=== PATIENT | female | born 1985 | race Caucasian/White ===

== ENCOUNTER 2023-09-11 10:09 | Emergency (ER) | payer OTHER, SELFPAY ==
[2023-09-11 10:11] VITALS: BP 115/69; PULSE 68; RESP 20; TEMP 36.5; O2SAT 98
--- NOTE | 2023-09-11 10:21 | ED.GENADUL_ITS ---
Discharge Plan Disposition Patient Disposition: Home Condition: Stable Discharge Details Clinical Impression: Closed fracture of distal end of left radius with ulna Primary Care Provider: Unknown,Unknown ED Provider: Lenora Morrison Home Meds and New Rx's Prescriptions: No Action No Known Home Meds Discharge Instructions Instructions: Wrist Fracture in Adults (ED) Additional Instructions: Your wrist was successfully reduced. Please keep the splint on and do not get it wet until follow-up with orthopedics. Please follow-up with them sometime this week. They will call you for follow-up appointment. If you have not heard from them in the next few days please call them. Keep your arm elevated above the level of your heart and ice it. You may loosen the Howard wrap's a little bit if it appears to be too tight your fingers turn cold blue numb or tingly. If you have severe increasing pain or problems with blood circulation please return to the ER. Please take Tylenol or Ibuprofen with food every 4-6 hours as needed for pain and swelling. Stand Alone Forms: Work Release Referrals: Arnel Johns MD [ [facility] STAFF PHYSICIAN] - 1 week Discharge Data Discharge Date/Time-TO BE ENTERED AT DEPARTURE: 09/11/23 12:56 HPI General Mode of arrival: ambulatory . Date/Time Provider Initiated Documentation: 09/11/23 10:19 . Limitations to Documentation: no limitations . Information obtained by: patient, family, RN notes reviewed and old records reviewed . HPI Narrative: 38 year old female presents to the ED with cc of left wrist deformity after a Foosh type injury while skiing. obvious deformity with dorsal angulation noted to wrist, Radial and ulnar pulses intact, distal CMS intact. Sensation intact to all fingers,hand is pink warm, dry. No other injuries, denies JORGE, neck or back pain. Related Data Home Medications Medication Instructions Recorded Confirmed Unknown [No Known Home Meds] 09/11/23 09/11/23 Allergies Allergy/AdvReac Type Severity Reaction Status Date / Time Penicillins Allergy Severe Anaphylaxis Unverified 09/11/23 10:16 General Stated Complaint: Orthopedic VIDYA: 3 Review of Systems All systems reviewed & are unremarkable except as noted in HPI and below ENT Ears, Nose, Mouth, and Throat: Denies neck pain Musculoskeletal Musculoskeletal: Reports as per HPI, Denies back pain, Reports deformity, Reports arthralgias, Reports joint swelling and Denies neck pain Exam Narrative Exam Narrative: General: Well Developed, Awake and Alert, conversant. Skin: Warm and Dry HEENT: Head: No palpable deformities, Normocephalic Eyes: Pupils PERRLA, EOM's intact. No periorbital eccymosis or step off Ears: Canal patent. Tympanic membranes are clear . No herman's sign, no hemptympanum. Nose/Face: Atraumatic. Facial bones nontender to palpation and stable with manipulation. Mouth/Throat: No intraoral trauma. Teeth and mandible are intact. Neck: No midline tenderness, no step off, no deformity to palpation of C-spine. Trachea midline. Chest: No surface trauma. Nontender without crepitus or deformity. Lungs clear to ausculatation bilaterally. Heart: RRR, no rubs, murmurs or gallop. Abdomen: No abrasions, ecchymosis, or surface trauma. Nondistended. Nontender to palpation no guarding, rebound, or rigidity. Pelvis: Nontender to palpation and stable to compression. Femoral pulses strong and equal Extremities: no surface trauma. Sensation intact. Peripheral pulses intact and equal. Deformity noted to left wrist. Dorsally angulated, distal pulses intact, sensation intact, no open skin. Suspect closed fracture. Neuro: ANO x4, GCS 15, cranial nerves II through XII intact. Motor and sensory exam nonfocal. Reflexes are symmetric. Extrem Right upper extremity: normal to inspection Left upper extremity: wrist Details: abnormal to inspection Details: obvious deformity, tenderness, swelling, radial pulse present and ulnar pulse present Course Vital Signs Vital signs: Vital Signs Temperature 36.5 C 09/11/23 10:11 Pulse 68 09/11/23 10:11 Respiratory Rate 20 09/11/23 10:11 Blood Pressure 115/69 09/11/23 10:11 Pulse Oximetry 98 09/11/23 10:11 Temperature 36.5 C 09/11/23 10:11 Temperature Source Tympanic 09/11/23 10:11 Pulse 68 09/11/23 10:11 Respiratory Rate 20 09/11/23 10:11 Blood Pressure 115/69 09/11/23 10:11 Blood Pressure Position Sitting 09/11/23 10:11 Pulse Oximetry 98 09/11/23 10:11 Oxygen Delivery Method Room Air 09/11/23 10:11 Oxygen Flow Rate 0 04/02/24 10:11 Pain Level 8 09/11/23 10:11 Procedures Nerve Block Nerve Block 1: Local Anesthetic: Lidocaine 2% Amount of anesthesia used (mL): 8 Side: left Nerve Blocks: hematoma block (Left wrist Fracture, dorsal side) Procedure Successful: Yes Patient Tolerated Procedure: well Complications: none Orthopedic Fracture Reduction Fracture #1: Time Out Performed: Yes Side: left Fracture Reduction Location: radius Analgesia: procedural sedation (1 mg Dilaudid) and hematoma block Technique: direct manipulation and traction/counter-traction Post Reduction X-rays Demonstrate: anatomical reduction Post-reduction neuro exam: intact Post-reduction vascular exam: intact Splint Applied: Yes Patient Tolerated Procedure: well Orthopedic Splinting/Casting Injury #1: Side: left Upper Extremity Injury Location: wrist Upper Extremity Immobilizer: sugartong splint and Howard wrap Other Orthopedic Equipment: other (Sling) Medical Decision Making 38 year old female presents to the ED with cc of left wrist deformity after a Foosh type injury while skiing. obvious deformity with dorsal angulation noted to wrist, Radial and ulnar pulses intact, distal CMS intact. Sensation intact to all fingers,hand is pink warm, dry. No other injuries, denies JORGE, neck or back pain. XR and percocet ordered, staff attorney placed patient in a sling. Ortho production hardener paged. Discussed X-ray findings, and verbally consented for hematoma block and reduction, verbalized understanding and agreed to plan. 1132: Spoke with regarding fracture, he was able to personally view the images. Will attempt closed reduction and plan for post reduction x-ray. Successful reduction noted on the x-rays. Distal CMS intact. Patient is sleepy. Will discharge patient with follow-up with orthopedics and into the care of her family. Will instruct on RICE procedures and follow-up care. Sugar-tong plaster splint applied Howard wrap. This text was generated using [employer] system, please disregard any oddities of phrase or misspellings. Quality:SDOH Health Related Social Needs: Health related social needs transpo insecurity PFSH All Active Problems (Updated 09/11/23 @ 12:38 by Lenora Morrison, [place]) Closed fracture of distal end of left radius with ulna (Acute) Social History Smoking/Tobacco Use Status: Never Smoking risk assessment performed?: Yes Alcohol Intake: never Substance use type: does not use Housing: house Do you feel safe at home: Yes Do you feel safe in your relationship?: Yes
[2023-09-11] MEDS: Ondansetron O.D.T. 4 MG TABEF PO (10:27)
[2023-09-11] MEDS: oxyCODONE 5 mg/Acetaminophen 325 mg TAB 1 TAB PO (10:27)
--- NOTE | 2023-09-11 10:52 | DI.RAD_ITS ---
Exam(s) XR WRIST LT COMPLETE EXAM: XR WRIST LT COMPLETE CLINICAL HISTORY: Fall, deformity. TECHNIQUE: 2D digital imaging was performed. COMPARISON: No exams were available for comparison FINDINGS: 3 views There is is a comminuted impacted and dorsally angulated fracture of the distal radius. No carpal di slocation. There is also a fracture through the base of the ulnar styloid with mild displacement Scaphoid and scapholunate distance are intact. No radiopaque foreign body. IMPRESSION: Fractures of distal radius and ulnar styloid as described above. DATA REPOSITORY: RADIATION DOSE DELIVERED:
[2023-09-11] MEDS: HYDROmorphone 2 MG/ML SYR 1 MG IVP (11:44)
--- NOTE | 2023-09-11 11:45 | DI.RAD_ITS ---
Exam(s) XR WRIST LT LIMITED EXAM: XR WRIST LT LIMITED CLINICAL HISTORY: POst reduction. TECHNIQUE: 2D digital imaging was performed. COMPARISON: CR XR WRIST LT COMPLETE from 09/11/2023 FINDINGS: Two post reduction in splint views: There is significant improvement in alignment and angulation of the distal radius fracture and also i mprovement in the position alignment of the ulnar styloid fragment. IMPRESSION: Significant improvement evident on these post reduction images. DATA REPOSITORY: RADIATION DOSE DELIVERED:
[2023-09-11 12:55] VITALS: BP 119/68; PULSE 64; O2SAT 100
== END 2023-09-11 12:56 | disposition home or self-care (01) ==
PROVIDERS: Emergency Provider Registered Nurse Emergency
DX: S52.592A Other fractures of lower end of left radius, initial encounter for closed fracture (principal); S52.612A Displaced fracture of left ulna styloid process, initial encounter for closed fracture; W00.0XXA Fall on same level due to ice and snow, initial encounter; Y93.23 Activity, snow (alpine) (downhill) skiing, snowboarding, sledding, tobogganing and snow tubing; Y92.838 Other recreation area as the place of occurrence of the external cause
CPT/HCPCS: 96374; 99283; 25605; 73100; 73110; J1170